=== PATIENT | male | born 2000 | race Two or more races ===

== ENCOUNTER 2024-11-06 20:03 | Emergency (ER) | payer OTHER ==
[~2024-11-06] VITALS: Ht 170.2 cm; Wt 90.7 kg
[2024-11-06] MEDS ORDERED: TETANUS & DIPHTHERIA TOX,ADULT 0.5 ML VIAL IM ONE (21:45)
[2024-11-06] MEDS ORDERED: LIDOCAINE HCL 1% 10ML VIAL PERCUT ONE (21:45)
[2024-11-06] MEDS ORDERED: CEFTRIAXONE SODIUM 1,000 MG VIAL IM ONE (21:45)
[2024-11-06] MEDS ORDERED: LIDOCAINE HCL 1% 10ML VIAL ONE (21:57)
[2024-11-06] MEDS ORDERED: DIPHTH,PERTUSS(ACELL),TET VAC 0.5 ML SYRINGE IM ONE (21:57)
[2024-11-06] MEDS ORDERED: CEFTRIAXONE SODIUM 1,000 MG VIAL ONE (22:08)
[2024-11-06] MEDS ORDERED: CEFUROXIME500 MG PO (23:18)
[2024-11-06] MEDS ORDERED: PEPCID AC20 MG PO (23:18)
== END 2024-11-06 23:24 | disposition home or self-care (01) ==
LOC: ER 21:21
DX: S01.01XA Laceration without foreign body of scalp, initial encounter (principal); S61.519A Laceration without foreign body of unspecified wrist, initial encounter; W45.8XXA Other foreign body or object entering through skin, initial encounter; Y93.89 Activity, other specified; Y92.832 Beach as the place of occurrence of the external cause; Y99.8 Other external cause status
CPT/HCPCS: 12032; 70450; 73130; 90471; 90714; J1670